=== PATIENT | female | born 1965 | race Caucasian/White ===

== ENCOUNTER 2019-11-23 15:31 | Emergency (ER) | payer MEDICARE, MEDICAID ==
[~2019-11-23] VITALS: Ht 165.1 cm; Wt 56.8 kg
[2019-11-23 15:41] VITALS: Ht 165.1 cm; Wt 56.8 kg
[2019-11-23] MEDS ORDERED: TREXALL10 MG PO (15:42)
[2019-11-23] MEDS ORDERED: LISINOPRIL20 MG PO (15:42)
[2019-11-23] MEDS ORDERED: NORVASC10 MG PO (15:42)
[2019-11-23] MEDS ORDERED: DIFLUCAN50 MG (15:43)
[2019-11-23] MEDS ORDERED: PROTONIX20 MG (15:43)
[2019-11-23 16:18] LABS: BASOPHILS 0.3 % (0-2); EOSINOPHILS 1.6 % (0-7); HEMATOCRIT 36.1 % (36.0-48.0); HEMOGLOBIN 12.4 g/dL (12-16); IMMATURE GRANULOCYTES 0.2 % (0-5); MCH 32.5 pg (26.0-34.0); MCHC 34.3 g/dL (31.0-37.0); MCV 94.5 fL (80.0-100.0); MEAN PLATELET VOLUME 9.2 fL (7.4-10.4); MONOCYTES 6.9 % (2-11); PLATELET COUNT 209 10x3/uL (130-400); RBC 3.82 10x6/uL (4.00-5.40); RDW 13.2 % (11.5-14.5); WBC 6.1 10x3/uL (4.8-10.8)
[2019-11-23 16:29] LABS: APTT 30.7 SECONDS (22.8-39.4); INR 1.01 (0.85-1.17); PROTIME 13.2 SECONDS (11.6-15.0)
[2019-11-23 17:04] LABS: UDS - AMPHET POSITIVE QUAL (NEGATIVE); UDS - BARB NEGATIVE QUAL (NEGATIVE); UDS - BENZO NEGATIVE QUAL (NEGATIVE); UDS - COCAINE NEGATIVE QUAL (NEGATIVE); UDS - OPIATE NEGATIVE QUAL (NEGATIVE); UDS - PCP NEGATIVE QUAL (NEGATIVE); UDS - THC POSITIVE QUAL (NEGATIVE)
[2019-11-23 17:13] LABS: ALBUMIN 3.8 g/dL (3.4-5.0); ALKALINE PHOSPHATASE 62 U/L (30-120); ALT (SGPT) 16 U/L (10-68); BILIRUBIN - TOTAL 0.48 mg/dL (0.2-1.3); CALC OSMOLALITY 274 mosm/kg (275-300); CALCIUM 8.7 mg/dL (8.5-10.1); CARBON DIOXIDE 23.8 mmol/L (21.0-32.0); CHLORIDE - SERUM 105 mmol/L (98-107); CKMB 8.1 U/L (0.0-3.6); CREATINE KINASE 590 UL (21-215); CREATININE - SERUM 0.9 mg/dL (0.6-1.3); GLUCOSE 80 mg/dL (74-106); MAGNESIUM - SERUM 1.8 mg/dL (1.8-2.4); SODIUM 139 mmol/L (136-145); TROPONIN-I < 0.017 ng/mL (0.000-0.060); UREA NITROGEN 8 mg/dL (7-18); eGFR NON AFRICAN AMERICAN 69 mL/min (90-120)
[2019-11-23 17:14] LABS: POTASSIUM - SERUM 2.8 mmol/L (3.5-5.1)
[2019-11-23 17:15] LABS: BILIRUBIN NEGATIVE (NEGATIVE); KETONE NEGATIVE (NEGATIVE); NITRITE NEGATIVE (NEGATIVE); UROBILINOGEN NORMAL mg/dL (< 2)
[2019-11-23 17:16] LABS: BACTERIA MANY HPF (NONE SEEN); EPITHELIAL CELLS 0-5 /hpf (0-5)
[2019-11-23] MEDS ORDERED: LOMOTIL 2.5-0.1 EAC1 PO (19:44)
[2019-11-23] MEDS ORDERED: MACROBID100 MG PO (19:44)
[2019-11-23 21:30] VITALS: BP 127/78
== END 2019-11-23 21:50 | disposition home or self-care (01) ==
LOC: D.ER 15:31
PROVIDERS: Family Medicine
DX: S30.814A Abrasion of vagina and vulva, initial encounter (principal); X58.XXXA Exposure to other specified factors, initial encounter; R19.7 Diarrhea, unspecified; E87.6 Hypokalemia; T76.21XA Adult sexual abuse, suspected, initial encounter

== ENCOUNTER 2019-11-30 16:49 | Inpatient (IN) | payer MEDICARE ==
[~2019-11-30] VITALS: Ht 165.1 cm; Wt 56.8 kg
--- NOTE | ~2019-11-30 | HEMODYNAMI ---
PATIENT:MECHELLE BEJARANO MEDICAL RECORD: [id number] : 63 LOCATION:[facility].[address] [place], [place] [address]T# [id number] ADMISSION DATE: 12/01/19 Generatedon:12/03/201911:13 Patient name: MECHELLE BEJARANO Patient #: [id number] SSN: [id number] : 1965 Date of study: 12/03/2019 Page: Of Hemodynamic Procedure Report Patient Data Patient Demographics Procedure consent was obtained First Name: MECHELLE Gender: Female Last Name: DARCI : 1965 Patient #: [id number] Age: 54 year(s) Race: Unknown SSN: [id number] Additional ID: [id number] Contact details Address: [facility] NO KNOWN ADDRESS State: [place] City: [place] Zip code: [address] Past Medical History Allergies Allergen Reaction Date Comments Reported Sulfa drugs 12/03/2019 Admission Admission Data Admission Date: 12/01/2019 Admission Time: 17:50 Room #: D.2121 Height (in.): 64.96 BSA: 1.62 (m2) Height (cm.): 165 BMI: 20.94 (kg/m2) Weight (lbs.): 125.66 Weight (kg.): 57 Lab Results Lab Result Date: 12/03/2019 Lab Result Time: 0:00 Biochemistry Name Units Result Min Max BUN mg/dl 9 --(*---)-- 7 18 Creatinine mg/dl 0.7 --(*---)-- 0.6 1.3 eGFR ml/min 90 --(*---)-- 90 120 NONAFRICAN CBC Name Units Result Min Max Hematocrit % 40 -*(----)-- 42 54 Hemoglobin g/dl 13 -*(----)-- 13.5 17.5 Procedure Procedure Types Cath Procedure Diagnostic Procedure LHC LHC w/Coronaries Sedation Charges Moderate Sedation up to 30 minutes Procedure Description Procedure Date Procedure Date: 12/03/2019 Procedure Start Time: 11:00 Procedure End Time: 11:10 Procedure Staff Name Function Moshe Harrison MD Performing Physician Marie Briscoe RT Monitor Marina Palmer RT Scrub Magdaleno Parekh RN Nurse Procedure Data Cath Procedure Fluoroscopy Diagnostic fluoroscopy Total fluoroscopy Time: 0.9 time: 0.9 min min Diagnostic fluoroscopy Total fluoroscopy dose: 217 dose: 217 mGy mGy Contrast Material Contrast Material Type Amount (ml) Isovue 300 46 Entry Location Entry Primary Successful Side Size Upsize Upsize Entry Closure Succes sful Closure Location (Fr) 1 (Fr) 2 (Fr) Remarks Device Remarks Femoral Right 5 Fr Exoseal artery Estimated blood loss: 10 ml Diagnostic catheters Device Type Used For End Catheter Placement MULTIPACK JL 4.0 5Fr Procedure catheter MULTIPACK 3DRC 5Fr Procedure catheter MULTIPACK Pigtail 5 Fr Ventriculography catheter Procedure Complications No complications Procedure Medications Medication Administration Route Dosage 0.9% NaCl I.V. 100 ml/hr Oxygen etCO2 Nasal cannula 2 l/min Heparin Flush Bag added to field 2 bags (1000units/500ml NS) Lidocaine 2% added to field 20 Versed I.V. 2 mg Fentanyl I.V. 100 mcg Versed I.V. 2 mg Versed I.V. 2 mg Hemodynamics Rest BSA: 1.62 (m2) HGB: 13 (g/dl) O2 Consumption: Estimated: 156.53 (ml/min) O2 Cons umption indexed: Estimated:96.62 (ml/min/m) Heart Rate: 71 (bpm) Pressure Samples Time Site Value (mmHg) Purpose Heart Use Rate(bpm) 11:06 LV 72/1,4 Snapshot 67 11:06 LV 88/-6,4 Snapshot 67 Gradients Valve Time Site Site Mean SEP/DFP Peak To Heart Use 1 2 (mmHg) (sec/min) Peak Rate (mmHg) (bpm) Aortic 11:07 LV AO 70 Snapshots Pre Cath Intra NCS Post Cath Vital Signs Time Heart Resp SPO2 etCO2 NIBP (mmHg) Rhythm Pain Sedation Rate (ipm) (%) (mmHg) Status Level (bpm) 10:33:44 66 23 99 0 144/77(100) NSR 0 (11) 10(A) , No pain 10:37:56 66 20 100 28.5 127/76(108) NSR 0 (11) 10(A) , No pain 10:42:04 71 22 98 31.5 119/75(91) NSR 0 (11) 10(A) , No pain 10:46:18 60 9 97 29.2 100/60(75) NSR 0 (11) 10(A) , No pain 10:50:26 62 25 96 0 99/59(74) NSR 0 (11) 10(A) , No pain 10:54:32 75 14 97 34.5 108/62(75) NSR 0 (11) 10(A) , No pain 10:58:44 58 16 97 38.3 104/57(70) NSR 0 (11) 10(A) , No pain 11:02:51 63 14 95 33 104/62(76) NSR 0 (11) 10(A) , No pain 11:06:59 73 13 97 40.5 106/61(75) NSR 0 (11) 10(A) , No pain Medications Time Medication Route Dose Verified Delivered Reason Notes Eff ectiveness by by 10:38:48 0.9% NaCl I.V. 100 Magdaleno Magdaleno Per ml/hr Iglesia Parekh physician RN RN 10:39:01 Oxygen etCO2 2 Magdaleno Magdaleno for low 02 Nasal l/min Lorigan Lorigan sats cannula RN RN 10:39:13 Heparin Flush added 2 Magdaleno Magdaleno used for Bag to bags Lorigan Iglesia procedure (1000units/500ml field RN RN NS) 10:39:24 Lidocaine 2% added 20ml Magdaleno Magdaleno for local to vial Lorigan Lorigan anesthetic field RN RN 10:39:41 Versed I.V. 2 mg Magdaleno Magdaleno for Lorigan Lorigan sedation RN RN 10:39:52 Fentanyl I.V. 100 Magdaleno Magdaleno for mcg Lorigan Lorigan sedation RN RN 10:55:11 Versed I.V. 2 mg Magdaleno Magdaleno for Lorigan Lorigan sedation RN RN 11:00:31 Versed I.V. 2 mg Magdaleno Magdaleno for Lorigan Lorigan sedation RN chairman & chief executive officer Log Time Note 10:15:08 Informed consent obtained and on chart 10:15:25 Procedure Status Urgent Heart Cath (IP). 10:15:26 Time tracking: Regular hours (M-F 7:00 - 5:00) 10:15:29 Plan of Care:Hemodynamics will remain stable., Cardiac rhythm will remain stable., Comfort level will be maintained., Respiratory function will remain adequate., Patient/ family verbilizes understanding of procedure., Procedure tolerated without complication., Recovers from procedure without complications.. 10:15:31 Marina Palmer RT(R) (CV) sent for patient. Start room use. 10:16:52 H&P Date Dictated: 12/01/2019 Within 30 days and on chart., H&P Addendum completed by physician on day of procedure. (MUST COMPLETE FOR ALL OUTPATIENTS). 10:20:02 Patient allergic to Sulfa drugs 10:20:32 Lab Result : eGFR NONAFRICAN 90 ml/min 10:20:32 Lab Result : Hemoglobin 13 g/dl 10:20:32 Lab Result : BUN 9 mg/dl 10:20:32 Lab Result : Creatinine 0.7 mg/dl 10:20:32 Lab Result : Hematocrit 40 % 10:29:13 Patient received from Med II to CCL 2 Alert and oriented. Tansferred to table in Supine position. 10:29:16 Warm blankets applied, and shirin hugger turned on for patient comfort. 10:29:17 Correct patient and procedure confirmed by team. 10:29:24 ECG and BP/O2 sat monitors applied to patient. 10:29:43 Patient not . Patient has had hysterectomy. 10:29:57 Patient Weight : 125.66 lbs 10:30:01 Patient Height : 64.96 inches 10:31:07 Full Disclosure recording started 10:31:08 Pre-procedure instructions explained to patient. 10:31:08 Pre-op teaching completed and patient verbalized understanding. 10:31:11 Patient NPO since Midnight. 10:31:13 Is the patient allergic to Iodine/contrast media? No. 10:31:14 Is patient on blood thinner?No 10:31:16 Patient diabetic? No. 10:31:19 Previous problem with sedation/anesthesia? No ? 10:31:20 Snore? Yes 10:31:21 Sleep apnea? No 10:31:22 Deviated septum? No 10:31:22 Opens mouth fully? Yes 10:31:23 Sticks out tongue? Yes 10:31:26 Airway obstruction? Yes COPD 10:31:29 Dentures? No ? 10:31:37 Family unavailable. 10:31:49 Pre procedure: right dorsailis pedis pulse 1+ Palpable, but thready & weak; easily obliterated 10:31:51 Patient pain scale 0/10 ?. 10:32:00 Lab results completed and on chart. 10:32:21 IV patent on arrival in left antecubital with 0.9% NaCl at O. 10:32:33 Right groin area was prepped with chlora-prep and draped in sterile fashion 10:32:38 Vital chart was started 10:32:41 Baseline sample Acquired. 10:32:44 Rhythm: sinus rhythm 10:37:06 Use device set Femoral Dx 10:37:07 ACIST Syringe (62557) opened to sterile field. 10:37:07 Bag Decanter (2002S) opened to sterile field. 10:37:09 ACIST Hand Control (62183) opened to sterile field. 10:37:09 ACIST Manifold (21684) opened to sterile field. 10:37:10 Tegaderm 4 x 4 (1626W) opened to sterile field. 10:37:11 Medline Cath Pack ([id number]) opened to sterile field. 10:37:13 DIAGNOSTIC Multipack 5Fr catheter set (IP7781) opened to sterile field. 10:37:13 SHEATH 5FR [place] (FXQ682) opened to sterile field. 10:37:14 EMERALD Guide Wire (371-593) opened to sterile field. 10:38:01 Alarms reviewed by R. N. 10:38:02 Sharps counted by scrub and verified by R.N. 10:38:03 Physician paged 10:38:25 Physical assessment completed. ASA score P 2 - A patient with mild systemic disease as per Marie Briscoe RT(R). 10:38:33 1) 90+ Normal kidney functon but urine findings or structural abnormalities or genetic trait point to kidney disease. 10:38:37 Maximum allowable contrast dose (3.7 X eGFR X 0.75)250 ml. 10:38:48 0.9% NaCl 100 ml/hr I.V. was administered by Magdaleno Parekh RN; Per physician; Verbal order read back and verified. 10:39:01 Oxygen 2 l/min etCO2 Nasal cannula was administered by Magdaleno Parekh RN; for low 02 sats; Verbal order read back and verified. 10:39:06 --------ALL STOP TIME OUT------ 10:39:11 Final Timeout: patient, procedure, and site verified with staff and physician. All members of the team are in agreement. 10:39:13 Heparin Flush Bag (1000units/500ml NS) 2 bags added to field was administered by Magdaleno Parekh RN; used for procedure; Verbal order read back and verified. 10:39:23 Right groin site verified by team. 10:39:24 Lidocaine 2% 20ml vial added to field was administered by Magdaleno Parekh RN; for local anesthetic; Verbal order read back and verified. 10:39:29 Sedation plan: IV Moderate Sedation Medication:Versed, Fentanyl 10:39:41 Versed 2 mg I.V. was administered by Magdaleno Parekh RN; for sedation; Verbal order read back and verified. 10:39:52 Fentanyl 100 mcg I.V. was administered by Magdaleno Parekh RN; for sedation; Verbal order read back and verified. 10:53:27 Zero performed for pressure channel P1 10:55:11 Versed 2 mg I.V. was administered by Magdaleno Parekh RN; for sedation; Verbal order read back and verified. 11:00:02 Procedure started. 11:00:15 Local anesthetic to right femoral artery with Lidocaine 2% by Moshe Harrison MD.INITIAL ACCESS ONLY 11:00:25 A 5 Fr sheath was inserted into the Right Femoral artery 11:00:31 Versed 2 mg I.V. was administered by Magdaleno Parekh RN; for sedation; Verbal order read back and verified. 11:01:24 A MULTIPACK JL 4.0 5Fr catheter was advanced over the wire and used for Procedure. 11:01:35 LCA angiography performed. 11:04:29 Catheter removed. 11:04:36 A MULTIPACK 3DRC 5Fr catheter was advanced over the wire and used for Procedure. 11:05:33 RCA angiography performed. 11:05:35 Catheter removed. 11:05:42 A MULTIPACK Pigtail 5 Fr catheter was advanced over the wire and used for Ventriculography. 11:05:50 LV gram done using WYNN 11:05:56 EF : 55 % 11:05:57 Catheter removed. 11:07:00 EXOSEAL 5Fr (EX500) opened to sterile field. 11:08:15 Sheath removed intact; hemostasis achieved with Exoseal to the Right Femoral artery. 11:08:18 Procedure ended.(Physican Out) 11:08:28 Fluoroscopy time 00.90 minutes. 11:08:33 Fluoroscopy dose: 217 mGy 11:08:33 Flurop Dose total: 217 11:08:38 Dose Area Product 99266 mGy/cm. 11:08:42 Contrast amount:Isovue 300 46ml. 11:08:45 Maximum allowable dose exceeded? No. 11:08:46 Sharps counted by scrub and verified by R.N. 11:08:48 Insertion/operative site no bleeding no hematoma. 11:08:51 Post-op/insertion site Right Femoral artery dressed using a 4 x 4 and Tegaderm. 11:08:53 Post Procedure Pulses reassessed and unchanged 11:08:59 Post-procedure physical assessment completed. ASA score P 2 - A patient with mild systemic disease as per Moshe Harrison MD. 11:09:02 Post procedure rhythm: unchanged. 11:09:06 Estimated blood loss: 10 ml 11:09:12 Post procedure instruction explained to patient.Patient verbalizes understanding. 11:09:32 Procedure type changed to Cath procedure, Diagnostic procedure, LHC, C w/Coronaries, Sedation Charges, Moderate Sedation up to 30 minutes 11:09:33 Procedure and supply charges have been captured, reviewed, submitted and are correct. 11:10:01 Procedure Complication : No complications 11:10:04 Vital chart was stopped 11:10:06 [facility] Findings: mild to moderate CAD (<70%) 11:10:09 See physician's report for complete and final results. 11:10:11 Report given to [facility]. 11:10:15 Patient transfered to [facility] II with Bed. 11:10:34 Procedure ended. 11:10:34 Full Disclosure recording stopped 11:10:42 End room use (Document Last) 11:11:25 End room use (Document Last) 11:12:32 End room use (Document Last) Device Usage Item Name Manufacture Quantity Catalog Hospital Part Current Minimal L ot# / Number Charge Number Stock Stock Serial# Code ACIST Acist 1 85740 371520 480703 [id number] 20 Tuscany Design Automation (10030) X2TV Bag Microtek 1 230522 44541 414272 5 Decanter Medical Inc. () ACIST Hand Acist 1 40451 975539 712420 371745 5 Control Medical (34413) Systems Inc ACIST Acist 1 85361 658927 448632 072063 5 Manifold Medical (93245) Systems Inc Tegaderm 4 3M 1 1626W 192331 679228 299713 5 x 4 (1626W) Medline Medline 1 [id number] 762410 07282 605777 5 Cath Pack ([id number]) DIAGNOSTIC Cardinal 1 EN2472 998375 96960 325482 30 MultipMobAppCreator 5Fr catheter set (XE6577) SHEATH 5FR Terumo 1 ERF299 226625 363412 535342 5 [place] (HAS264) EMERALD Cardinal 1 627-236 924369 711495 469941 5 Guide Wire Health (883-602) MULTIPACK Cardinal 1 325627 5 JL 4.0 5Fr Health catheter MULTIPACK Cardinal 1 286491 5 3DRC 5Fr Health catheter MULTIPACK Cardinal 1 713383 5 Pigtail 5 Health Fr catheter EXOSEAL 5Fr Cardinal 1 EX500 386133 422224 616271 10 (EX500) Health Signature Audit Conway Stage Time Signature Unsigned Intra-Procedure 12/03/2019 Marie Briscoe 11:11:25 AM RT(R) Intra-Procedure 12/03/2019 Magdaleno 11:12:32 AM Iglesia OWUSU Intra-Procedure 12/03/2019 Moshe Blanco 11:13:02 AM Afshin GARCIA Signatures Performing Physician : Signature : Moshe Harrison MD Date : Time : Monitor : Marie Briscoe Signature : RT Date : Time : Nurse : Magdaleno Parekh Signature : RN Date : Time : [address] [address]
[~2019-11-30 16:49] MED LIST: DIFLUCAN50 MG; LISINOPRIL20 MG PO; LOMOTIL 2.5-0.1 EAC1 PO; MACROBID100 MG PO; NORVASC10 MG PO; PROTONIX20 MG PO; TREXALL10 MG PO
[2019-11-30 16:55] VITALS: BP 115/62
[2019-11-30 17:12] LABS: BASOPHILS 0.6 % (0-2); EOSINOPHILS 2.7 % (0-7); HEMOGLOBIN 12.1 g/dL (12-16); IMMATURE GRANULOCYTES 0.2 % (0-5); LYMPHOCYTES 30.9 % (15-50); MCH 32.4 pg (26.0-34.0); MCHC 33.6 g/dL (31.0-37.0); MCV 96.3 fL (80.0-100.0); MEAN PLATELET VOLUME 9.1 fL (7.4-10.4); MONOCYTES 6.2 % (2-11); NEUTROPHILS 59.4 % (40-80); PLATELET COUNT 216 10x3/uL (130-400); RBC 3.74 10x6/uL (4.00-5.40); RDW 13.5 % (11.5-14.5); WBC 6.3 10x3/uL (4.8-10.8)
[2019-11-30 17:24] LABS: INR 0.99 (0.85-1.17)
[2019-11-30 17:25] LABS: APTT 28.6 SECONDS (22.8-39.4)
[2019-11-30 17:49] LABS: ALBUMIN 3.7 g/dL (3.4-5.0); ALKALINE PHOSPHATASE 62 U/L (30-120); ALT (SGPT) 26 U/L (10-68); CALC OSMOLALITY 277 mosm/kg (275-300); CALCIUM 8.6 mg/dL (8.5-10.1); CHLORIDE - SERUM 102 mmol/L (98-107); CKMB 2.3 U/L (0.0-3.6); CREATINE KINASE 99 UL (21-215); CREATININE - SERUM 0.8 mg/dL (0.6-1.3); GLUCOSE 108 mg/dL (74-106); MAGNESIUM - SERUM 1.7 mg/dL (1.8-2.4); PROTEIN - SERUM 6.7 g/dL (6.4-8.2); SODIUM 139 mmol/L (136-145); TROPONIN-I 0.019 ng/mL (0.000-0.060); UREA NITROGEN 10 mg/dL (7-18); eGFR NON AFRICAN AMERICAN 79 mL/min (90-120)
[2019-11-30 17:50] LABS: POTASSIUM - SERUM 2.7 mmol/L (3.5-5.1)
--- NOTE | 2019-11-30 19:30 | NUR ---
RECEIVED REPORT, WILL ASSUME CARE OF PT, HISTORY AND MEDS COMPLETE, A&OX4, IV-LAC-SL, [id number], DENIES ANY NEEDS AT THIS TIME, BED IS LOW, SRX2, CALL LIGHT IN REACH, WILL CONTINUE PLAN OF CARE
[2019-11-30] MEDS ORDERED: PRAVACHOL40 MG PO (19:58)
[2019-11-30] MEDS ORDERED: ACETAMINOPHEN500 M1 PO (19:59)
[2019-12-01 00:01] LABS: CKMB 1.5 U/L (0.0-3.6); CREATINE KINASE 116 UL (21-215)
[2019-12-01 00:08] LABS: TROPONIN-I < 0.017 ng/mL (0.000-0.060)
[2019-12-01 00:28] VITALS: BMI 20.8
[2019-12-01 03:54] VITALS: BP 114/71
[2019-12-01 06:52] LABS: BASOPHILS 0.6 % (0-2); EOSINOPHILS 5.2 % (0-7); HEMATOCRIT 36.5 % (36.0-48.0); HEMOGLOBIN 12.1 g/dL (12-16); LYMPHOCYTES 34.5 % (15-50); MCHC 33.2 g/dL (31.0-37.0); MCV 96.6 fL (80.0-100.0); MEAN PLATELET VOLUME 9.6 fL (7.4-10.4); MONOCYTES 8.6 % (2-11); NEUTROPHILS 51.1 % (40-80); PLATELET COUNT 235 10x3/uL (130-400); RBC 3.78 10x6/uL (4.00-5.40); RDW 13.7 % (11.5-14.5); WBC 5.2 10x3/uL (4.8-10.8)
[2019-12-01 07:17] VITALS: BP 99/57
[2019-12-01 07:28] LABS: ALBUMIN 3.1 g/dL (3.4-5.0); ALKALINE PHOSPHATASE 55 U/L (30-120); ALT (SGPT) 23 U/L (10-68); BILIRUBIN - TOTAL 0.17 mg/dL (0.2-1.3); CALC OSMOLALITY 280 mosm/kg (275-300); CALCIUM 8.5 mg/dL (8.5-10.1); CARBON DIOXIDE 27.6 mmol/L (21.0-32.0); CHLORIDE - SERUM 108 mmol/L (98-107); CKMB 1.7 U/L (0.0-3.6); CREATINE KINASE 74 UL (21-215); CREATININE - SERUM 0.7 mg/dL (0.6-1.3); GLUCOSE 80 mg/dL (74-106); PROTEIN - SERUM 6.2 g/dL (6.4-8.2); SODIUM 142 mmol/L (136-145); TROPONIN-I < 0.017 ng/mL (0.000-0.060); UREA NITROGEN 9 mg/dL (7-18); eGFR NON AFRICAN AMERICAN > 90 mL/min (90-120)
[2019-12-01 07:31] LABS: POTASSIUM - SERUM 3.4 mmol/L (3.5-5.1)
[2019-12-01 08:02] VITALS: BP 118/65
--- NOTE | 2019-12-01 09:50 | NUR ---
SPOKE WITH LUIS DE SOUZA TO LOOK AT PT'S HOME MED LIST AND RESTART THEM AND SHE STATES SHE WOULD. I VERBALIZED UNDERSTANDING.
--- NOTE | 2019-12-01 10:15 | NUR ---
PT TOOK SHOWER BY SELF.
[2019-12-01 10:41] LABS: UDS - AMPHET NEGATIVE QUAL (NEGATIVE); UDS - BARB NEGATIVE QUAL (NEGATIVE); UDS - BENZO NEGATIVE QUAL (NEGATIVE); UDS - COCAINE NEGATIVE QUAL (NEGATIVE); UDS - OPIATE POSITIVE QUAL (NEGATIVE); UDS - PCP NEGATIVE QUAL (NEGATIVE); UDS - THC NEGATIVE QUAL (NEGATIVE)
--- NOTE | 2019-12-01 10:57 | NUR ---
PT REFUSINT TO BE NPO ORDERS AND AGRICULTURAL ECONOMIST WALKED IN ON PT EATING SNACKS THAT PT HAD WITH HER BELONGINGS.
[2019-12-01 11:19] VITALS: BP 120/71
--- NOTE | 2019-12-01 11:52 | NUR ---
REFUSING TO BE NPO NOTIFIED [facility]. NOTE ON NURSES STATION THAT CIGARETTE SMOKE COMING FROM PT'S ROOM AND PT REFUSED TO HAVE CIGARETTES TAKEN OUT OF ROOM. STRONG SMELL OF CIGARRETTE SMOKE IN ROOM AND PT STATES SHE KNOWS BETTER THAN TO SMOKE IN ROOM AND DENIES SMOKING IN ROOM. WILL SPEAK WITH JOHANN OWUSU NURSE CURRENCY EXCHANGE SPECIALIST.
--- NOTE | 2019-12-01 12:00 | NUR ---
CHARGE NURSE CALLED JUDO INSTRUCTOR AND JUDO INSTRUCTOR SENT ENGINEERING TO SPEAK WITH PT. ENGINEERING NOW IN PT'S ROOM.
[2019-12-01 13:08] LABS: CKMB 1.4 U/L (0.0-3.6); CREATINE KINASE 84 UL (21-215); TROPONIN-I < 0.017 ng/mL (0.000-0.060)
[2019-12-01 14:33] VITALS: Ht 165.1 cm; Wt 56.8 kg
--- NOTE | 2019-12-01 15:02 | NUR ---
VICE PRESIDENT NETWORK DEVELOPMENT STATES PT IS IN BATHROOM AND STRONG ODOR OF SMOKE IS COMING FROM BATHROOM. CALLED COUNTY HOME DEMONSTRATOR AND SHE STATES TO CALL 2400 AND GET SECURITY. CALLED 2400 AND STATED THIS TO THEM AND THEY STATED THEY WILL CALL SECURITY.
--- NOTE | 2019-12-01 15:11 | NUR ---
ANA HEAD OF SECURITY WENT IN PT'S ROOM AND SPOKE WITH PT AND STATES TO HER IF STAFF SMELLS SMOKE AGAIN THEN THE POLICE WILL BE CALLED AND SHE WILL BE GIVEN A $250 FINE AND GIVEN A CITATION. ANA THEN STATES TO ME IF WE SMELL SMOKE AGAIN THEN TO CALL SECURITY AND THEY WILL CALL THE POLICE. I VERBALIZED UNDERSTANDING.
--- NOTE | 2019-12-01 15:16 | NUR ---
DR. WHITE STATES HE WILL NOT DC PT BUT PT CAN LEAVE AMA.
--- NOTE | 2019-12-01 15:45 | NUR ---
PT C/O HAVING AVAGINAL YEAST INFECTION AND STATES SHE IS HAVING WHITE CHUNKY DISCHARGE. I VERBALIZED UNDRSTANDING AND STATED THIS TO LUIS DE SOUZA AND SHE STATES SHE WILL ORDER DIFLUCAN.
--- NOTE | 2019-12-01 16:27 | NUR ---
PT STATES SHE SMOKES A PACK A DAY AND WOULD LIKE A NICOTINE PATCH.
[2019-12-01 16:29] VITALS: BP 120/70
--- NOTE | 2019-12-01 19:30 | NUR ---
RECEIVED BEDSIDE REPORT. ROUNDING COMPLETE. PATIENT IS ALERT AND ORIENTED, RESTING COMFORTABLY IN BED. RESPIRATIONS ARE EVEN AND UNLABORED. NO S/S OF DISTRESS. NO C/O PAIN. CALL LIGHT WITHIN REACH. WILL CPOC.
[2019-12-01 22:45] VITALS: BP 118/74
[2019-12-02 02:12] VITALS: BP 121/74
[2019-12-02 06:14] VITALS: BP 120/63
[2019-12-02 07:00] VITALS: BP 128/74
[2019-12-02 07:02] LABS: BASOPHILS 0.7 % (0-2); EOSINOPHILS 3.9 % (0-7); LYMPHOCYTES 29.6 % (15-50); MCH 31.6 pg (26.0-34.0); MCHC 32.5 g/dL (31.0-37.0); MCV 97.1 fL (80.0-100.0); MEAN PLATELET VOLUME 9.6 fL (7.4-10.4); MONOCYTES 7.2 % (2-11); NEUTROPHILS 58.6 % (40-80); PLATELET COUNT 242 10x3/uL (130-400); RBC 4.12 10x6/uL (4.00-5.40); RDW 13.6 % (11.5-14.5); WBC 4.6 10x3/uL (4.8-10.8)
[2019-12-02 07:27] LABS: CALC OSMOLALITY 278 mosm/kg (275-300); CALCIUM 8.9 mg/dL (8.5-10.1); CARBON DIOXIDE 27.5 mmol/L (21.0-32.0); CHLORIDE - SERUM 108 mmol/L (98-107); CREATININE - SERUM 0.7 mg/dL (0.6-1.3); GLUCOSE 88 mg/dL (74-106); POTASSIUM - SERUM 3.7 mmol/L (3.5-5.1); SODIUM 141 mmol/L (136-145); UREA NITROGEN 9 mg/dL (7-18); eGFR NON AFRICAN AMERICAN > 90 mL/min (90-120)
[2019-12-02 11:00] VITALS: BP 127/75
[2019-12-02 15:00] VITALS: BP 128/66
[2019-12-02 19:58] VITALS: BP 124/68
--- NOTE | 2019-12-02 20:19 | NUR ---
PATIENT LEFT FLOOR. EXPLAINED TO PATIENT THAT IF SHE IS GOING OUT TO SMOKE SHE NEEDS TO TAKE THE NICOTINE PATCH OFF. PATIENT STATED "I HAVE PERMISSION FROM THE DOCTOR."
[2019-12-03] VITALS: BP 136/76
[2019-12-03 04:00] VITALS: BP 110/63
[2019-12-03 07:12] LABS: BASOPHILS 0.6 % (0-2); HEMATOCRIT 38.1 % (36.0-48.0); HEMOGLOBIN 12.5 g/dL (12-16); IMMATURE GRANULOCYTES 0.2 % (0-5); LYMPHOCYTES 25.2 % (15-50); MCH 31.5 pg (26.0-34.0); MCHC 32.8 g/dL (31.0-37.0); MEAN PLATELET VOLUME 9.6 fL (7.4-10.4); MONOCYTES 7.1 % (2-11); NEUTROPHILS 62.9 % (40-80); PLATELET COUNT 250 10x3/uL (130-400); RBC 3.97 10x6/uL (4.00-5.40); RDW 13.5 % (11.5-14.5); WBC 5.2 10x3/uL (4.8-10.8)
[2019-12-03 07:34] LABS: ALT (SGPT) 20 U/L (10-68); CALC OSMOLALITY 278 mosm/kg (275-300); CALCIUM 8.5 mg/dL (8.5-10.1); CARBON DIOXIDE 25.1 mmol/L (21.0-32.0); CHLORIDE - SERUM 107 mmol/L (98-107); CHOL - HDL RATIO 3.7 ratio (2.3-4.1); CHOLESTEROL, TOTAL 157 mg/dL (0-200); CREATININE - SERUM 0.6 mg/dL (0.6-1.3); GLUCOSE 88 mg/dL (74-106); HDL CHOLESTEROL 42 mg/dL (32-96); LDL CHOLESTEROL 87 mg/dL (0-100); LDL-HDL RATIO 2.1 ratio (1.5-3.5); POTASSIUM - SERUM 3.4 mmol/L (3.5-5.1); SODIUM 141 mmol/L (136-145); TRIGLYCERIDE 143 mg/dL (30-200); UREA NITROGEN 10 mg/dL (7-18); eGFR NON AFRICAN AMERICAN > 90 mL/min (90-120)
--- NOTE | 2019-12-03 10:30 | NUR ---
PRE-OPS GIVEN. TO DIRECTOR OF EDUCATION BY BED.
[2019-12-03 10:52] VITALS: BP 127/64
[2019-12-03] MEDS ORDERED: NORVASC10 MG PO (12:21)
[2019-12-03] MEDS ORDERED: PRAVACHOL40 MG PO (12:22)
[2019-12-03] MEDS ORDERED: LISINOPRIL20 MG PO (12:22)
--- NOTE | 2019-12-03 13:12 | NUR ---
BED REST UP. GROIN STABLE.
--- NOTE | 2019-12-03 13:53 | NUR ---
IV AND TELEMETRY DCD. DC PLANS GIVEN. UNDERSTANDING VOICED. ESCORTED TO TAXI BY W/C.
--- NOTE | 2019-12-03 16:55 | EC ---
PATIENT:MECHELLE BEJARANO DATE OF SERVICE: 12/01/19 SEX: F MEDICAL RECORD: [id number] DATE OF : 63 LOCATION:D. D.212 AGE OF PATIENT: 54 ADMISSION DATE: 12/01/19 REFERRING PHYSICIAN: INTERPRETING PHYSICIAN: TOMER BLAS MD ECHOCARDIOGRAM REPORT ECHO CHARGES 4 ECHO COMPLETE Date: 12/02/19 CLINICAL DIAGNOSIS: hX: mURMUR, SYNCOPE ECHOCARDIOGRAPHIC MEASUREMENTS (adult normal given) AC root (d.<3.7cm) 3.0 cm LV Septum d (<1.2 cm> 1.3 cm Valve Excursion cm LV Septum (systole) 1.7 cm Left Atria (s.<4.0cm> 3.5 cm LVPW d(<1.2cm) 1.2 cm RV (d.<2.3cm) 4.2 cm LVPW (sytole) 1.2 cm LV diastole(<5.6CM) 4.5 cm MV E-F(>70mm/sec) cm LV systole 3.1 cm LVOT Diameter 1.9 cm MV exc.(>10mm) cm Est.ejection fraction (50-75%) 55 % DOPPLER: LVIT cm/sec A 72 cm/sec E 69 cm/sec LA cm/sec RVSP 35 mmHg LVOT 120 cm/sec AOP1/2T m/s Asc. Ao 133 cm/sec RVOT cm/sec RA cm/sec PA cm/sec AV Gradient Peak 7.1 mmHg AV Mean 3.8 mmHg AV Area 2.4 cm MV Gradient Peak mmHg MV Mean mmHg MV Area cm COMMENTS: Truss Assembler: Pipefitter: Gianni Drsicoll TAPE# Pacs Pericardial Effusion N DATE OF SERVICE: Adequate 2D, color-flow imaging, spectral Doppler, and M-Mode Mild LVH. LV internal dimensions are normal. Wall motion is normal. EF is greater than or equal to 55%. Aortic valve is tricuspid. No evidence of stenosis by Doppler interrogation. Left atrium is normal. Mitral valve shows no prolapse. Trivial MR. Right-sided chambers are grossly normal. Trivial TR. TRANSINT:[id number] Voice Confirmation ID: [id number] DOCUMENT ID: [id number] ECHOCARDIOGRAM REPORT [id number] VIRIGLIOMECHELLE RODRIGUEZ TOMER BLAS MD at 1655 CC: [id number] DICTATION DATE: 12/03/19 0836 ENGINEERING CONSULTANT: 12/03/19 1238 DIS IN 12/03/19 [place] [id number] [facility] [address]
--- NOTE | 2019-12-04 10:47 | OP ---
PATIENT NAME: MECHELLE BEJARANO MEDICAL RECORD: [id number] :63 LOCATION:D.M2 D.1 ADMISSION DATE:12/01/19 SURGEON: TOMER BLAS MD DATE OF OPERATION: 12/03/2019 PROCEDURE: Left heart catheterization, selective coronary angiography, right femoral artery approach. CATHETERS: A 5-Divehi sheath, 5/4 left and right Major, 5/4 pig. The procedure was well tolerated. The patient returned to romero. Sheath removed. ExoSeal device placed. FINDINGS: Left ventriculography in 30-degree WYNN view: Normal wall motion and normal systolic function. CORONARY ANATOMY: LEFT MAIN: Free of disease. LAD: Free of disease in the diagonal system. CIRCUMFLEX: Free of disease in the marginal system. RIGHT CORONARY ARTERY: Dominant artery, gives rise to PDA, free of disease. IMPRESSION: Normal LV systolic function, normal coronary anatomy. NTS:[id number] Voice Confirmation ID: [id number] DOCUMENT ID: [id number] TOMER BLAS MD at 1047 CC: [id number] DICTATION DATE: 12/03/19 1138 DISPLAY TRIMMER: 12/03/192130 DIS IN 12/03/19 [place] [address] [place] [address]
== END 2019-12-03 13:55 | disposition home or self-care (01) | DRG 287 ==
LOC: D.ER 16:49 → OBSVTIME 18:12 → D.M2 18:12
PROVIDERS: Family Medicine; Internal Medicine Interventional Cardiology; ADMIT Family Medicine; ATTEND Family Medicine
PROC: B2151ZZ Fluoroscopy of Left Heart using Low Osmolar Contrast (ICD-10-PCS; 2019-12-03)
PROC: 4A023N7 Measurement of Cardiac Sampling and Pressure, Left Heart, Percutaneous Approach (ICD-10-PCS; 2019-12-03)
PROC: B2111ZZ Fluoroscopy of Multiple Coronary Arteries using Low Osmolar Contrast (ICD-10-PCS; principal; 2019-12-03 10:15)
DX: R07.9 Chest pain, unspecified (principal); E87.6 Hypokalemia; I10 Essential (primary) hypertension; J44.9 Chronic obstructive pulmonary disease, unspecified; M06.9 Rheumatoid arthritis, unspecified; F12.10 Cannabis abuse, uncomplicated; Z72.0 Tobacco use